=== PATIENT | female | born 1960 | race Caucasian/White ===

== ENCOUNTER → 2018-10-21 | Emergency (ER) | payer OTHER ==
[~2018-10-21] VITALS: Ht 160 cm; Wt 66.2 kg
[~2018-10-21] MED LIST: SYNTHROID100 MCG PO
== END | disposition home or self-care (01) ==
LOC: ER 09:25
DX: K57.90 Diverticulosis of intestine, part unspecified, without perforation or abscess without bleeding (principal)

== ENCOUNTER 2024-06-02 18:22 | Emergency (ER) | payer OTHER ==
[~2024-06-02] VITALS: Ht 160 cm; Wt 65.3 kg
[2024-06-02] MEDS ORDERED: ZESTRIL2.5 MG (18:45)
[2024-06-02] MEDS ORDERED: 0.9 % SODIUM CHLORIDE 500 ML IV ONE (19:15)
[2024-06-02] MEDS ORDERED: FAMOTIDINE/PF 20 MG/2 ML VIAL IV ONE (19:15)
[2024-06-02] MEDS ORDERED: DICYCLOMINE HCL 10 MG CAPSULE PO ONE (19:15)
[2024-06-02 19:39] LABS: HEMATOCRIT 39.4 % (36.0-45.00); HEMOGLOBIN 13.7 g/dL (12.0-15.00); MEAN CELL VOLUME 88.1 fL (80.00-100.00); MEAN CORPUSCULAR HEMOGLOBIN 30.7 pg (27.00-32.0); MEAN CORPUSCULAR HGB CONC 34.8 g/dl (32.0-36.0); PLATELET COUNT 293 K/uL (150-450); RED BLOOD COUNT 4.47 M/uL (4.00-6.00); RED CELL DISTRIBUTION WIDTH 13.2 % (11.5-14.5)
[2024-06-02] MEDS ORDERED: PIPERACILLIN/TAZOBACTAM SODIUM 3.375 GM VIAL IV ONE (20:00)
[2024-06-02] MEDS ORDERED: KETOROLAC TROMETHAMINE 30 MG VIAL IV ONE (20:00)
[2024-06-02 20:10] LABS: PH,URINE 5.5 (5.0-8.0); URINE APPEARANCE Clear; URINE BILIRRUBIN Negative (NEGATIVE); URINE BLOOD Negative; URINE COLOR Yellow; URINE GLUCOSE Negative (NEGATIVE); URINE KETONE Negative (NEGATIVE); URINE LEUKOCYTE Negative; URINE NITRATE Negative; URINE PROTEIN Negative (NEGATIVE); URINE UROBILINOGEN 0.2 E.U./dl
[2024-06-02 20:14] LABS: URINE BACTERIA 7.3 uL (0.0-1933)
[2024-06-02 20:21] LABS: ALBUMIN 3.7 gm/dL (3.4-5.0); BILIRUBIN TOTAL 0.26 mg/dL (0.3-1.2); CALCIUM 9.5 mg/dL (8.5-10.1); CREATININE SERUM 0.85 mg/dL (0.55-1.02); GFR 67.77; GLOBULINA 3.9 G/DL (2.4-3.5); POTASSIUM 4.1 mEq/L (3.5-5.1); TOTAL PROTEIN 7.6 gm/dL (6.4-8.2)
[2024-06-02 20:47] LABS: URINE EPITHELIAL CELLS 0.9 uL (0.0-38.8); URINE RBC 1.3 uL (0.0-20.8); URINE WBC 0.4 uL (0.0-23.2)
[2024-06-02] MEDS ORDERED: PEPCID AC20 MG PO (21:43)
[2024-06-02] MEDS ORDERED: METRONIDAZOLE500 MG PO (21:43)
[2024-06-02] MEDS ORDERED: LEVSIN0.125 MG PO (21:43)
[2024-06-02] MEDS ORDERED: CIPRO500 MG PO (21:43)
== END 2024-06-02 22:02 ==
LOC: ER 18:25
PROVIDERS: General Practice
DX: K57.92 Diverticulitis of intestine, part unspecified, without perforation or abscess without bleeding (principal); R10.32 Left lower quadrant pain; R10.9 Unspecified abdominal pain; I10 Essential (primary) hypertension; E03.8 Other specified hypothyroidism; Z88.2 Allergy status to sulfonamides; Z91.013 Allergy to seafood